=== PATIENT | male | born 1960 | race Caucasian/White ===

== ENCOUNTER 2017-01-30 16:50 | Emergency (ER) | payer OTHER ==
[2017-01-30] MEDS ORDERED: Lidocaine 2% Viscous Solution 15 ML Cup ONE (17:15)
[2017-01-30] MEDS ORDERED: Lidocaine 1% 20 ML MDV INJECT ONE (17:46)
--- NOTE | 2017-01-30 18:43 | EDM.PDOC ---
ED HPI Skin/Rash - General Chief Complaint: Laceration Stated Complaint: LACERATION LT THUMB Time Seen by Provider: 01/30/17 17:39 Source: Reports: Patient History Limitations: Reports: No limitations - History of Present Illness INITIAL COMMENTS - FREE TEXT/NARRATIVE: History of present illness: [56-year-old male comes in status post lacerating his left thumb on shop equipment or carpentry there is a cut the spleen is the pad of the thumb and goes around the tip towards the nail. Patient indicates he only came in because he has had some recent concerns with having blood dyscrasias and he thought it would be best to have a laceration evaluated in light of these concerns.] Review of systems: As per history of present illness and below otherwise all systems reviewed and negative. Past medical history: As per history of present illness and as reviewed below otherwise noncontributory. Surgical history: As per history of present illness and as reviewed below otherwise noncontributory. Social history: No reported history of drug or alcohol abuse. Family history: As per history of present illness and as reviewed below otherwise noncontributory. Physical exam: HEENT: Atraumatic, normocephalic, pupils reactive, negative for conjunctival pallor or scleral icterus, mucous membranes moist, throat clear, neck supple, nontender, trachea midline. Lungs: Clear to auscultation, breath sounds equal bilaterally, chest nontender. Heart: S1S2, regular, negative for clicks, rubs, or JVD. Abdomen: Soft, nondistended, nontender. Negative for masses or hepatosplenomegaly. Negative for costovertebral tenderness. Pelvis: Stable nontender. Genitourinary: Deferred. Rectal: Deferred. Extremities: Atraumatic, negative for cords or calf pain. Neurovascular unremarkable. Neuro: Awake, alert, oriented. Cranial nerves II through XII unremarkable. Cerebellum unremarkable. Motor and sensory unremarkable throughout. Exam nonfocal. Skin: One and half centimeter laceration at an angle from the pad of the thumb over the tip into the nail with macerated edges and a piece of flesh extruded. Patient declined sutures asked for antibiotics. Indicated he would not usually come for this nature of injury as he does this frequently in his line of work that he was concerned about healing. Retention sutures would have been off to mom to help approximate the edges to facilitate healing area has hemostasis and is not actively bleeding despite manipulation. Diagnostics: [] Therapeutics: [] Impression: [Laceration 1-1/2-2 cm on thumb] Plan: [Them dressed after cleaning and antibiotics and brief pain medicines provided] Definitive disposition and diagnosis as appropriate pending reevaluation and review of above. - Related Data Allergies Allergy/AdvReac Type Severity Reaction Status Date / Time No Known Allergies Allergy Verified 09/30/15 10:29 Home Meds: Ambulatory Orders Medication Instructions Recorded Confirmed Amoxicillin/Potassium Clav 1 each PO BID #28 tablet 01/30/17 [Augmentin 875-125 Tablet] Past Medical History - Past Health History Medical/Surgical History: Denies Medical/Surgical History HEENT History: Reports: Other (see below) Other HEENT History: top front flipper Cardiovascular History: Reports: None Respiratory History: Reports: None Gastrointestinal History: Reports: Other (see below) Other Gastrointestinal History: rectal bleeding Genitourinary History: Reports: None Musculoskeletal History: Reports: None Neurological History: Reports: None Psychiatric History: Reports: None Endocrine/Metabolic History: Reports: None Hematologic History: Reports: Anemia, Blood transfusion(s), Idiopathic thrombocytopenia Other Hematologic History: transfusion Nov 24, 2016, 2 units Immunologic History: Reports: None Dermatologic History: Reports: None - Infectious Disease History Infectious Disease History: Reports: None - Past Surgical History Head Surgeries/Procedures: Reports: None HEENT Surgical History: Reports: None GI Surgical History: Reports: Colonoscopy, EGD Musculoskeletal Surgical History: Reports: Arthroscopic knee, Other (see below) Other Musculoskeletal Surgeries/Procedures:: bone and bone marrow biopsy - History Comment History Comment: etoh "occasional" Social & Family History - Family History Family Medical History: Noncontributory - Tobacco Use Smoking Status *Q: Former Smoker Month Tobacco Last Used: quit smoking 6 yrs ago - Recreational Drug Use Recreational Drug Use: Yes Drug Use in Last 12 Months: Yes Recreational Drug Type: Reports: Marijuana/Hashish Recreational Drug Use Frequency: Socially Recreational Drug Last Use: last smoked marijuana nov, ED ROS GENERAL - Review of Systems Review Of Systems: See Below (History of present illness) ED EXAM, SKIN/RASH Exam: See Below (The history of present illness) Course - Vital Signs Last Recorded V/S: Last Vital Signs Temp 36.9 C 01/30/17 17:10 Pulse 79 04/03/17 17:10 Resp 18 01/30/17 17:10 BP 148/88 H 01/30/17 17:10 Pulse Ox 96 01/30/17 17:10 - Orders/Labs/Meds Meds: Medications Discontinued Medications Generic Name Dose Route Start Last Admin Trade Name Moris PRN Reason Stop Dose Admin Lidocaine HCl 15 ml 01/30/17 17:15 Xylocaine 2% Viscous .ROUTE 01/30/17 17:16 .STK-MED ONE Lidocaine HCl 20 ml 01/30/17 17:46 Xylocaine 1% INJECT 01/30/17 17:47 ONETIME ONE Departure - Departure Time of Disposition: 18:42 Disposition: Home, Self-Care 01 Condition: good Clinical Impression: Laceration of thumb with delay in treatment Qualifiers: Encounter type: initial encounter Laterality: left Qualified Code(s): S61.012A - Laceration without foreign body of left thumb without damage to nail, initial encounter Prescriptions: Amoxicillin/Potassium Clav [Augmentin 875-125 Tablet] 1 each PO BID #28 tablet Instructions: Laceration Care, Adult, [id number] Forms: ED Department Discharge Additional Instructions: The following information is given to patients seen in the emergency department who are being discharged to home. This information is to outline your options for follow-up care. We provide all patients seen in our emergency department with a follow-up referral. The need for follow-up, as well as the timing and circumstances, are variable depending upon the specifics of your emergency department visit. If you don't have a primary care physician on staff, we will provide you with a referral. We always advise you to contact your personal physician following an emergency department visit to inform them of the circumstance of the visit and for follow-up with them and/or the need for any referrals to a consulting specialist. The emergency department will also refer you to a specialist when appropriate. This referral assures that you have the opportunity for follow-up care with a specialist. All of these measure are taken in an effort to provide you with optimal care, which includes your follow-up. Under all circumstances we always encourage you to contact your private physician who remains a resource for coordinating your care. When calling for follow-up care, please make the office aware that this follow-up is from your recent emergency room visit. If for any reason you are refused follow-up, please contact the [facility] Emergency Department at and asked to speak to the emergency department charge nurse. Keep thumb clean and dry and change dressing if it becomes soiled and/or damp Take antibiotics as directed Followup with primary care as discussed Return to ER as needed as discussed
[2017-01-30 19:18] VITALS: BP 134/77
== END 2017-01-30 19:15 | disposition home or self-care (01) ==
LOC: MW.ED 16:50
DX: S61.012A Laceration without foreign body of left thumb without damage to nail, initial encounter (principal); W45.8XXA Other foreign body or object entering through skin, initial encounter; D64.9 Anemia, unspecified; Z98.890 Other specified postprocedural states; Z87.891 Personal history of nicotine dependence
CPT/HCPCS: 99282; 99283

== ENCOUNTER 2017-04-28 11:52 | Emergency (ER) | payer OTHER ==
[2017-04-28 12:56] VITALS: BP 128/81
[2017-04-28] MEDS ORDERED: cefTRIAXone 1,000 MG in Lidocaine 1% 4 ML IM ONE (13:10)
--- NOTE | 2017-04-28 13:14 | EDM.PDOC ---
ED HPI GENERAL MEDICAL PROBLEM - General Chief Complaint: Upper Extremity Injury/Pain Stated Complaint: HURT FINGER Time Seen by Provider: 04/28/17 12:57 Source of Information: Reports: Patient History Limitations: Reports: No Limitations - History of Present Illness INITIAL COMMENTS - FREE TEXT/NARRATIVE: HISTORY AND PHYSICAL: 57-year-old male presenting with injury to his left hand History of Present Illness: [] Working patient put a nail through his hand Then pulled the nail out Last tetanus injection 2 years ago Patient has been going through treatments for [facility]topenia [facility] Review of Systems: As per history of present illness and below otherwise all systems reviewed and negative. Past medical history: As per history of present illness and as reviewed below otherwise noncontributory. Surgical history: As per history of present illness and as reviewed below otherwise noncontributory. Social history: No reported history of drug or alcohol abuse. Family history: As per history of present illness and as reviewed below otherwise noncontributory. Physical exam:Alert and oriented , understands and answers questions appropriately HEENT: Atraumatic, normocehpalic, pupils reactive, negative for conjunctival pallor or scleral icterus, mucous membranes moist, throat clear, neck supple, nontender, trachea midline. Lungs: Clear to auscultation, breath sounds equal bilaterally, chest non tender. Heart: S1S2, regular, negative for clicks, rubs, or JVD. Abdomen: Soft, nondistended, nontender. Negative for masses or hepatossplenmegaly. Negative for costovertebral tenderness. Pelvis: Stable nontender. Genitourinary: Deferred. Rectal: Deferred Extremities:Puncture wound noted from the nail no gross abnormalities he still has full range of motion sensation is intact no edema refill less than 2 seconds , negative for cords or calf pain. Neurovascular unremarkable. Neuro: Awake, alert, oriented. Cranial nerves II through XII unremarkable. Cerebellum unremarkable. Motor and sensory unremarkable throughout. Exam nonfocal. Diagnostics: [X-rays to hand and finger identify nondisplaced fracture] Therapeutics: [Splint placed to his left hand] Rocephin 1 g IM Impression: [Nondisplaced fracture] Plan: []Splint fingers Follow-up with Dr. Villanueva Definitive disposition and diagnosis as appropriate pending reevaluation and review of above. Onset: Today, Sudden left index finger Pain Score (Numeric/FACES): 3 - Related Data Allergies Allergy/AdvReac Type Severity Reaction Status Date / Time No Known Allergies Allergy Verified 04/28/17 12:54 Home Meds: Home Meds Aspirin 1 tab PO DAILY 04/28/17 [History] Cephalexin [Keflex] 500 mg PO Q6HR #14 cap 04/28/17 [Rx] Past Medical History - Past Health History Medical/Surgical History: Denies Medical/Surgical History HEENT History: Reports: Other (See Below) Other HEENT History: top front flipper Cardiovascular History: Reports: None Respiratory History: Reports: None Gastrointestinal History: Reports: Other (See Below) Other Gastrointestinal History: rectal bleeding Genitourinary History: Reports: None Musculoskeletal History: Reports: None Neurological History: Reports: None Psychiatric History: Reports: None Endocrine/Metabolic History: Reports: None Hematologic History: Reports: Anemia, Blood Transfusion(s), Idiopathic Thrombocytopenia Other Hematologic History: transfusion Nov 24, 2016, 2 units Immunologic History: Reports: None Dermatologic History: Reports: None - Infectious Disease History Infectious Disease History: Reports: Chicken Pox, Influenza, Measles - Past Surgical History Head Surgeries/Procedures: Reports: None Musculoskeletal Surgical History: Reports: Arthroscopic Knee, Other (See Below) - History Comment History Comment: etoh "occasional" Social & Family History - Family History Family Medical History: Noncontributory - Tobacco Use Smoking Status *Q: Never Smoker Month Tobacco Last Used: quit smoking 6 yrs ago - Recreational Drug Use Recreational Drug Use: Yes Drug Use in Last 12 Months: Yes Recreational Drug Type: Reports: Marijuana/Hashish Recreational Drug Use Frequency: Socially Recreational Drug Last Use: last smoked marijuana nov, Review of Systems - Review of Systems Review Of Systems: ROS reveals no pertinent complaints other than HPI. ED EXAM, GENERAL - Physical Exam Exam: See Below Course - Vital Signs Last Recorded V/S: Last Vital Signs Temp 36.4 C 04/28/17 12:55 Pulse 66 04/28/17 12:55 Resp 20 04/28/17 12:55 BP 128/81 04/28/17 12:55 Pulse Ox 98 04/28/17 12:55 - Orders/Labs/Meds Orders: Active Orders 24 hr Category Date Time Status Fingers Second Digit Lt F1 [CR] Stat Exams 04/28/17 12:28 Taken Hand 2V Lt [CR] Stat Exams 04/28/17 12:28 Taken Meds: Medications Discontinued Medications Generic Name Dose Route Start Last Admin Trade Name Moris PRN Reason Stop Dose Admin Ceftriaxone Sodium 1,000 mg/ 4 mls @ 4 mls/sec 04/28/17 13:10 Lidocaine HCl IM 04/28/17 13:11 ONETIME ONE Departure - Departure Time of Disposition: 13:15 Disposition: Home, Self-Care 01 Condition: Good Clinical Impression: Fracture of metacarpal bone Qualifiers: Encounter type: initial encounter Metacarpal bone: first Fracture type: open Metacarpal location: base Fracture morphology: unspecified fracture morphology Fracture alignment: nondisplaced Laterality: left Qualified Code(s): S62.235B - Other nondisplaced fracture of base of first metacarpal bone, left hand, initial encounter for open fracture - Discharge Information Prescriptions: Cephalexin [Keflex] 500 mg PO Q6HR #14 cap Instructions: Cast or Splint Care, [id number] Referrals: Yuri Oliveros DO [Primary Care Provider] - Ana Laura Villanueva MD [Physician] - Forms: ED Department Discharge - My Orders Last 24 Hours: My Active Orders 04/28/17 12:28 Fingers Second Digit Lt F1 [CR] Stat Hand 2V Lt [CR] Stat - Assessment/Plan Last 24 Hours: My Active Orders 04/28/17 12:28 Fingers Second Digit Lt F1 [CR] Stat Hand 2V Lt [CR] Stat
--- NOTE | 2017-04-28 13:19 | CR ---
EXAMINATION: Left hand and second digit HISTORY: Pain COMPARISON: None TECHNIQUE: 2 views of the left hand and 3 views of the left hand, second digit. FINDINGS: There is likely a nondisplaced fracture through the radial aspect of the proximal second p halanx without intra-articular extension. There is a likely healed fracture deformity of the distal phalanx of the third digit. The remaining osseous structures Gross intact. Joint spaces appear preserved. IMPRESSION: 1. Nondisplaced fracture along the proximal and radial aspect of the proximal second phalanx without intra-articular extension.
== END 2017-04-28 13:37 | disposition home or self-care (01) ==
LOC: MW.ED 11:52
DX: S62.235B Other nondisplaced fracture of base of first metacarpal bone, left hand, initial encounter for open fracture (principal); Z86.2 Personal history of diseases of the blood and blood-forming organs and certain disorders involving the immune mechanism; Z79.82 Long term (current) use of aspirin; Z98.890 Other specified postprocedural states; W45.0XXA Nail entering through skin, initial encounter
CPT/HCPCS: 29125; 73120; 73140; 99283; J0696

== ENCOUNTER 2022-04-14 18:11 | Emergency (ER) | payer SELFPAY ==
[2022-04-14] MEDS ORDERED: Lidocaine 1% 5 ML VIAL INJECT ONE (19:00)
[2022-04-14] MEDS ORDERED: Bupivacaine 0.25% 10 ML SDV INJECT ONE (19:01)
[2022-04-14] MEDS ORDERED: Bacitracin Oint 1 GM U/D Packet TOP ONE (20:37)
[2022-04-14] MEDS ORDERED: Cephalexin 500 MG Cap PO ONE (20:38)
[2022-04-14 20:59] VITALS: BP 148/78; PULSE 89
== END 2022-04-14 20:59 | disposition home or self-care (01) ==
LOC: MW.ED 18:11
DX: S61.432A Puncture wound without foreign body of left hand, initial encounter (principal); Z79.82 Long term (current) use of aspirin; W26.8XXA Contact with other sharp object(s), not elsewhere classified, initial encounter
CPT/HCPCS: 12004; 73130; 99284; A9270; J3490